=== PATIENT | female | born 1970 | race Caucasian/White ===

== ENCOUNTER 2022-08-20 14:36 | Inpatient (IN) | payer MEDICARE, MEDICAID ==
[~2022-08-20] VITALS: Ht 160 cm; Wt 73.2 kg
[2022-08-20] MEDS ORDERED: OLAN5TAB52 PO (15:12)
[2022-08-20] MEDS ORDERED: MIRT-89 PO (15:12)
[2022-08-20] MEDS ORDERED: HYDR-4723 PO (15:14)
[2022-08-20] MEDS ORDERED: INSNOV SQ (15:14)
[2022-08-20 17:01] LABS: COVID AG,FIA SOURCE NASOPHARYNGEAL
[2022-08-20] MEDS ORDERED: LORazepam 2 MG/ML VIAL IM ONE (18:30)
[2022-08-20] MEDS ORDERED: HALOPERIDOL LACTATE 5 MG/ML VIAL IM ONE (18:30)
[2022-08-20] MEDS ORDERED: DiphenhydrAMINE HCL 50 MG/ML VIAL IM ONE (18:30)
[2022-08-20 20:23] LABS: BASOPHILS % (AUTO) 0.4 % (0.0-2.0); EOSINOPHILS % (AUTO) 0 % (1.0-6.0); LYMPHOCYTES # (AUTO) 2.6 K/uL (1.0-4.8); LYMPHOCYTES % (AUTO) 33.7 % (22.0-44.0); MEAN CORPUSCULAR HEMOGLOBIN 29.6 pg (26.0-34.0); MEAN CORPUSCULAR HGB CONC 32.6 G/dL (31.0-37.0); MEAN CORPUSCULAR VOLUME 91 fL (80-100); MONOCYTES # (AUTO) 0.6 K/uL (0.1-1.0); MONOCYTES % (AUTO) 8.2 % (2.0-9.0); NEUTROPHILS # (AUTO) 4.5 K/uL (1.8-7.7); NEUTROPHILS % (AUTO) 57.7 % (40.0-70.0); PLATELET COUNT (AUTO) 326 K/uL (150-450); RED CELL DISTRIBUTION WIDTH 12.9 % (11.5-14.5)
[2022-08-20 20:48] LABS: ANION GAP 8 mmol/L (8-16); CALCIUM, TOTAL 8.9 mg/dL (8.8-10.5); CARBON DIOXIDE 28 mmol/L (22-29); CHLORIDE 101 mmol/L (98-107); CREATININE 0.52 mg/dL (0.60-1.30); GLOMERULAR FILTR. RATE CALC > 60 mL/min (>60); GLUCOSE,RANDOM 296 mg/dL (70-110); POTASSIUM 3.6 mmol/L (3.5-5.1); SODIUM SERUM 137 mmol/L (136-145)
[2022-08-20 20:53] LABS: ALANINE AMINOTRANSFERASE 27 U/L (12-78); ALBUMIN 3.3 g/dL (3.4-5.0); ALKALINE PHOSPHATASE 109 U/L (46-116); ASPARTATE AMINOTRANSFERASE 18 U/L (15-37); BILIRUBIN,TOTAL 0.3 mg/dL (0.1-1.0); TOTAL PROTEIN, SERUM 6.6 g/dL (6.4-8.2)
[2022-08-20] MEDS ORDERED: INSULIN REGULAR, HUMAN 100 UNITS/ML SQ ONE (21:00)
[2022-08-20 21:26] LABS: GLUCOMETER DEV NAME(LOC) ERT.5; GLUCOSE,POINT OF CARE 313 MG/DL (70-110)
[2022-08-21 04:11] LABS: GLUCOMETER DEV NAME(LOC) BV3S.; GLUCOSE,POINT OF CARE 328 MG/DL (70-110)
[2022-08-21 04:41] VITALS: BP 115/69
[2022-08-21] MEDS ORDERED: PNEUMOCOCCAL VACCINE POLYVALENT 0.5 ML VIAL [PPSV23] IM. ONE (05:00)
[2022-08-21 08:23] VITALS: BP 125/83
[2022-08-21] MEDS: OLANZapine 5 MG TABLET PO SCH (11:06)
[2022-08-21] MEDS ORDERED: GLUCAGON,HUMAN RECOMBINANT 1 MG VIAL IM PRN (15:15)
[2022-08-21] MEDS ORDERED: INSULIN LISPRO 100 UNITS/ML SQ ONE (16:30)
[2022-08-21 16:35] LABS: GLUCOMETER DEV NAME(LOC) BV2X.2; GLUCOSE,POINT OF CARE 410 MG/DL (70-110)
[2022-08-21 20:11] VITALS: BP 128/72
[2022-08-21] MEDS: MIRTAZAPINE 15 MG TABLET PO SCH (20:34)
[2022-08-21 20:46] LABS: GLUCOMETER DEV NAME(LOC) BV2X.2; GLUCOSE,POINT OF CARE 261 MG/DL (70-110)
[2022-08-21] MEDS: INSULIN LISPRO 100 UNITS/ML SQ PRN (20:49)
[2022-08-22 04:30] VITALS: BP 144/80
[2022-08-22] MEDS: LORazepam 2 MG TABLET PO PRN (04:43)
[2022-08-22 06:16] LABS: GLUCOMETER DEV NAME(LOC) BV2X.2; GLUCOSE,POINT OF CARE 261 MG/DL (70-110)
[2022-08-22] MEDS: INSULIN LISPRO 100 UNITS/ML SQ PRN ×4 (06:26→20:09)
[2022-08-22 08:11] VITALS: BP 110/70
[2022-08-22] MEDS: OLANZapine 5 MG TABLET PO SCH (08:35)
[2022-08-22 11:20] LABS: GLUCOMETER DEV NAME(LOC) BV2X.2; GLUCOSE,POINT OF CARE 364 MG/DL (70-110)
[2022-08-22 16:56] LABS: GLUCOMETER DEV NAME(LOC) BV2X.2; GLUCOSE,POINT OF CARE 306 MG/DL (70-110)
[2022-08-22] MEDS: MIRTAZAPINE 15 MG TABLET PO SCH (20:11)
[2022-08-22 20:21] LABS: GLUCOMETER DEV NAME(LOC) BV2X.2; GLUCOSE,POINT OF CARE 382 MG/DL (70-110)
[2022-08-22] MEDS: ZOLPIDEM TARTRATE 10 MG TABLET PO PRN (21:24)
[2022-08-23 03:52] VITALS: BP 142/85
[2022-08-23 06:26] LABS: GLUCOMETER DEV NAME(LOC) BV2X.2; GLUCOSE,POINT OF CARE 254 MG/DL (70-110)
[2022-08-23] MEDS: INSULIN LISPRO 100 UNITS/ML SQ PRN ×2 (06:43→12:15)
[2022-08-23 07:30] LABS: APPEARANCE,URINE CLEAR (CLEAR); BILIRUBIN,URINE NEGATIVE (NEGATIVE); GLUCOSE, URINE (UA) >=1000 mg/dL (NEGATIVE); KETONES,URINE NEGATIVE (NEGATIVE); LEUKOCYTE ESTERASE ,URINE NEGATIVE (NEGATIVE); NITRATE,URINE POSITIVE (NEGATIVE); OCCULT BLOOD,URINE NEGATIVE (NEGATIVE); PH,URINE 5.5 (5.0-8.0); PROTEIN,URINE NEGATIVE (NEGATIVE); SPECIFIC GRAVITIY, URINE 1.032 (1.003-1.030); UROBILINOGEN,URINE <=1.0 mg/dL (<=1.0)
[2022-08-23 07:39] LABS: AMPHET/METH SCREEN,URINE NEGATIVE (NEGATIVE); BARBITURATE SCREEN, URINE NEGATIVE (NEGATIVE); BENZODIAZEPINES SCREEN,URINE NEGATIVE (NEGATIVE); CANNABINOID SCREEN,URINE NEGATIVE (NEGATIVE); COCAINE SCREEN,URINE NEGATIVE (NEGATIVE); METHADONE SCREEN, URINE NEGATIVE (NEGATIVE); OPIATE SCREEN,URINE NEGATIVE (NEGATIVE); PHENCYCLIDINE SCREEN,URINE NEGATIVE (NEGATIVE)
[2022-08-23 07:40] LABS: BACTERIA,URINE Many /HPF (None Seen); RBC,URINE 0-2 /HPF (0-2); WBC,URINE None Seen /HPF (0-5); YEAST,URINE Few /HPF (None Seen)
[2022-08-23 07:41] LABS: SQUAMOUS EPITHELIAL CELL,UR Few /LPF (None Seen)
[2022-08-23 09:30] VITALS: BP 138/82
[2022-08-23 12:21] LABS: GLUCOMETER DEV NAME(LOC) BV2X.2; GLUCOSE,POINT OF CARE 290 MG/DL (70-110)
[2022-08-23 20:21] VITALS: BP 137/86
[2022-08-23 20:36] LABS: GLUCOMETER DEV NAME(LOC) BV2X.2; GLUCOSE,POINT OF CARE 449 MG/DL (70-110)
[2022-08-23] MEDS: MIRTAZAPINE 15 MG TABLET PO SCH (20:39)
[2022-08-23] MEDS: OLANZapine 5 MG TABLET PO SCH (20:39)
[2022-08-23] MEDS ORDERED: INSULIN LISPRO 100 UNITS/ML SQ ONE (20:45)
[2022-08-23] MEDS: INSULIN GLARGINE,HUM.REC.ANLOG 100 UNITS/ML SQ SCH (20:52)
[2022-08-24 06:16] LABS: GLUCOMETER DEV NAME(LOC) BV2X.2; GLUCOSE,POINT OF CARE 265 MG/DL (70-110)
[2022-08-24] MEDS: INSULIN LISPRO 100 UNITS/ML SQ PRN ×5 (06:42→20:42)
[2022-08-24] MEDS: INSULIN GLARGINE,HUM.REC.ANLOG 100 UNITS/ML SQ SCH ×2 (08:33→17:02)
[2022-08-24 08:50] VITALS: BP 136/83
[2022-08-24 11:31] LABS: GLUCOMETER DEV NAME(LOC) BV2X.2; GLUCOSE,POINT OF CARE 241 MG/DL (70-110)
[2022-08-24 16:51] LABS: GLUCOMETER DEV NAME(LOC) BV2X.2; GLUCOSE,POINT OF CARE 368 MG/DL (70-110)
[2022-08-24] MEDS: MIRTAZAPINE 15 MG TABLET PO SCH (20:36)
[2022-08-24] MEDS: OLANZapine 5 MG TABLET PO SCH (20:36)
[2022-08-24 20:46] LABS: GLUCOMETER DEV NAME(LOC) BV2X.2; GLUCOSE,POINT OF CARE 344 MG/DL (70-110)
[2022-08-24 21:10] VITALS: BP 112/62
[2022-08-25 06:25] LABS: GLUCOMETER DEV NAME(LOC) BV2X.2; GLUCOSE,POINT OF CARE 245 MG/DL (70-110)
[2022-08-25] MEDS: INSULIN LISPRO 100 UNITS/ML SQ PRN ×4 (06:52→21:06)
[2022-08-25 08:24] VITALS: BP 119/72
[2022-08-25] MEDS: LEVOFLOXACIN 500 MG TABLET PO SCH (08:40)
[2022-08-25] MEDS: INSULIN GLARGINE,HUM.REC.ANLOG 100 UNITS/ML SQ SCH ×2 (08:49→17:37)
[2022-08-25 11:26] LABS: GLUCOMETER DEV NAME(LOC) BV2X.2; GLUCOSE,POINT OF CARE 192 MG/DL (70-110)
[2022-08-25] MEDS ORDERED: LORazepam 2 MG/ML VIAL ONE (15:17)
[2022-08-25] MEDS ORDERED: HALOPERIDOL LACTATE 5 MG/ML VIAL ONE (15:17)
[2022-08-25] MEDS ORDERED: DiphenhydrAMINE HCL 50 MG/ML VIAL ONE (15:17)
[2022-08-25] MEDS ORDERED: LORazepam 2 MG/ML VIAL IM ONE (15:30)
[2022-08-25] MEDS ORDERED: DiphenhydrAMINE HCL 50 MG/ML VIAL IM ONE (15:30)
[2022-08-25] MEDS ORDERED: HALOPERIDOL LACTATE 5 MG/ML VIAL IM ONE (15:30)
[2022-08-25 17:21] LABS: GLUCOMETER DEV NAME(LOC) BV2X.2; GLUCOSE,POINT OF CARE 313 MG/DL (70-110)
[2022-08-25] MEDS: MIRTAZAPINE 15 MG TABLET PO SCH (20:22)
[2022-08-25] MEDS: OLANZapine 5 MG TABLET PO SCH (20:27)
[2022-08-25 21:47] VITALS: BP 120/60
[2022-08-25 23:21] LABS: GLUCOMETER DEV NAME(LOC) POC.BV
[2022-08-26] MEDS: LORazepam 2 MG TABLET PO PRN ×2 (04:18→08:46)
[2022-08-26] MEDS: HALOPERIDOL 5 MG TABLET PO PRN ×2 (04:19→08:45)
[2022-08-26 04:23] VITALS: BP 140/82
[2022-08-26 06:36] LABS: GLUCOMETER DEV NAME(LOC) BV2X.2; GLUCOSE,POINT OF CARE 314 MG/DL (70-110)
[2022-08-26] MEDS: INSULIN LISPRO 100 UNITS/ML SQ PRN ×4 (06:50→20:43)
[2022-08-26 08:16] VITALS: BP 134/81
[2022-08-26] MEDS: LEVOFLOXACIN 500 MG TABLET PO SCH (08:45)
[2022-08-26] MEDS: OLANZapine 5 MG TABLET PO SCH ×2 (08:46→20:35)
[2022-08-26] MEDS: INSULIN GLARGINE,HUM.REC.ANLOG 100 UNITS/ML SQ SCH ×2 (08:55→16:53)
[2022-08-26 11:41] LABS: GLUCOMETER DEV NAME(LOC) BV2X.2; GLUCOSE,POINT OF CARE 329 MG/DL (70-110)
[2022-08-26 17:01] LABS: GLUCOMETER DEV NAME(LOC) BV2X.2; GLUCOSE,POINT OF CARE 202 MG/DL (70-110)
[2022-08-26 20:11] VITALS: BP 141/79
[2022-08-26] MEDS: MIRTAZAPINE 15 MG TABLET PO SCH (20:33)
[2022-08-26 20:56] LABS: GLUCOMETER DEV NAME(LOC) BV2X.2; GLUCOSE,POINT OF CARE 332 MG/DL (70-110)
[2022-08-27] MEDS: ZOLPIDEM TARTRATE 10 MG TABLET PO PRN (00:48)
[2022-08-27] MEDS: HALOPERIDOL 5 MG TABLET PO PRN (01:58)
[2022-08-27] MEDS: LORazepam 2 MG TABLET PO PRN (01:58)
[2022-08-27 06:06] LABS: GLUCOMETER DEV NAME(LOC) BV2X.2; GLUCOSE,POINT OF CARE 188 MG/DL (70-110)
[2022-08-27] MEDS: INSULIN LISPRO 100 UNITS/ML SQ PRN ×4 (06:20→20:25)
[2022-08-27] MEDS: OLANZapine 5 MG TABLET PO SCH ×2 (08:59→20:01)
[2022-08-27] MEDS: LEVOFLOXACIN 500 MG TABLET PO SCH (08:59)
[2022-08-27 09:04] VITALS: BP 149/82
[2022-08-27] MEDS: INSULIN GLARGINE,HUM.REC.ANLOG 100 UNITS/ML SQ SCH ×2 (09:13→16:25)
[2022-08-27] MEDS: DIVALPROEX SODIUM 500 MG DR TABLET PO SCH ×2 (11:15→20:01)
[2022-08-27 12:01] LABS: GLUCOMETER DEV NAME(LOC) BV2X.2; GLUCOSE,POINT OF CARE 239 MG/DL (70-110)
[2022-08-27 16:41] LABS: GLUCOMETER DEV NAME(LOC) BV2X.2; GLUCOSE,POINT OF CARE 294 MG/DL (70-110)
[2022-08-27] MEDS: MIRTAZAPINE 15 MG TABLET PO SCH (20:01)
[2022-08-27 20:03] VITALS: BP 144/75
[2022-08-27 21:26] LABS: GLUCOMETER DEV NAME(LOC) BV2X.2; GLUCOSE,POINT OF CARE 350 MG/DL (70-110)
[2022-08-28] MEDS: ZOLPIDEM TARTRATE 10 MG TABLET PO PRN (01:17)
[2022-08-28 05:30] LABS: GLUCOMETER DEV NAME(LOC) BV2X.2; GLUCOSE,POINT OF CARE 280 MG/DL (70-110)
[2022-08-28] MEDS: INSULIN LISPRO 100 UNITS/ML SQ PRN ×3 (06:37→21:48)
[2022-08-28 08:05] VITALS: BP 115/60
[2022-08-28] MEDS: LEVOFLOXACIN 500 MG TABLET PO SCH (08:25)
[2022-08-28] MEDS: OLANZapine 5 MG TABLET PO SCH ×2 (08:25→20:58)
[2022-08-28] MEDS: DIVALPROEX SODIUM 500 MG DR TABLET PO SCH ×2 (08:25→20:58)
[2022-08-28] MEDS: INSULIN GLARGINE,HUM.REC.ANLOG 100 UNITS/ML SQ SCH ×2 (09:02→18:12)
[2022-08-28 12:21] LABS: GLUCOMETER DEV NAME(LOC) BV2X.2; GLUCOSE,POINT OF CARE 278 MG/DL (70-110)
[2022-08-28] MEDS: HALOPERIDOL 5 MG TABLET PO PRN (16:07)
[2022-08-28] MEDS: LORazepam 2 MG TABLET PO PRN (16:07)
[2022-08-28 20:00] VITALS: BP 125/87
[2022-08-28] MEDS: MIRTAZAPINE 15 MG TABLET PO SCH (20:58)
[2022-08-28 22:16] LABS: GLUCOMETER DEV NAME(LOC) BV2S.; GLUCOSE,POINT OF CARE 344 MG/DL (70-110)
[2022-08-29 04:11] LABS: GLUCOMETER DEV NAME(LOC) BV2X.2; GLUCOSE,POINT OF CARE 290 MG/DL (70-110)
[2022-08-29 06:36] LABS: GLUCOMETER DEV NAME(LOC) BV2X.2; GLUCOSE,POINT OF CARE 234 MG/DL (70-110)
[2022-08-29] MEDS: INSULIN LISPRO 100 UNITS/ML SQ PRN ×2 (07:35→16:44)
[2022-08-29] MEDS: DIVALPROEX SODIUM 500 MG DR TABLET PO SCH ×2 (08:50→20:44)
[2022-08-29] MEDS: OLANZapine 5 MG TABLET PO SCH ×2 (08:51→20:44)
[2022-08-29] MEDS: LEVOFLOXACIN 500 MG TABLET PO SCH (08:51)
[2022-08-29] MEDS: INSULIN GLARGINE,HUM.REC.ANLOG 100 UNITS/ML SQ SCH ×2 (08:53→16:44)
[2022-08-29 09:02] VITALS: BP 116/70
[2022-08-29] MEDS ORDERED: INSULIN LISPRO 100 UNITS/ML SQ ONE (11:30)
[2022-08-29 11:36] LABS: GLUCOMETER DEV NAME(LOC) BV2X.2; GLUCOSE,POINT OF CARE 401 MG/DL (70-110)
[2022-08-29 16:32] LABS: GLUCOMETER DEV NAME(LOC) BV2X.2; GLUCOSE,POINT OF CARE 200 MG/DL (70-110)
[2022-08-29] MEDS: MIRTAZAPINE 15 MG TABLET PO SCH ×2 (20:44→23:16)
[2022-08-29 21:57] VITALS: BP 115/70
[2022-08-29] MEDS: ZOLPIDEM TARTRATE 10 MG TABLET PO PRN (23:16)
[2022-08-30 06:22] LABS: GLUCOMETER DEV NAME(LOC) BV2X.2; GLUCOSE,POINT OF CARE 251 MG/DL (70-110)
[2022-08-30] MEDS: INSULIN LISPRO 100 UNITS/ML SQ PRN ×4 (06:53→20:43)
[2022-08-30] MEDS: OLANZapine 5 MG TABLET PO SCH ×2 (09:04→20:24)
[2022-08-30] MEDS: DIVALPROEX SODIUM 500 MG DR TABLET PO SCH ×2 (09:04→20:24)
[2022-08-30] MEDS: INSULIN GLARGINE,HUM.REC.ANLOG 100 UNITS/ML SQ SCH ×2 (09:06→16:46)
[2022-08-30 11:47] LABS: GLUCOMETER DEV NAME(LOC) BV2X.2; GLUCOSE,POINT OF CARE 349 MG/DL (70-110)
[2022-08-30 16:31] LABS: GLUCOMETER DEV NAME(LOC) BV2X.2; GLUCOSE,POINT OF CARE 316 MG/DL (70-110)
[2022-08-30 20:01] VITALS: BP 149/74
[2022-08-30 20:36] LABS: GLUCOMETER DEV NAME(LOC) BV2X.2; GLUCOSE,POINT OF CARE 260 MG/DL (70-110)
[2022-08-31 06:16] LABS: GLUCOMETER DEV NAME(LOC) BV2X.2; GLUCOSE,POINT OF CARE 245 MG/DL (70-110)
[2022-08-31] MEDS: INSULIN LISPRO 100 UNITS/ML SQ PRN ×2 (06:33→11:17)
[2022-08-31 08:07] VITALS: BP 130/79
[2022-08-31] MEDS: OLANZapine 5 MG TABLET PO SCH ×2 (08:26→20:30)
[2022-08-31] MEDS: DIVALPROEX SODIUM 500 MG DR TABLET PO SCH ×2 (08:26→20:30)
[2022-08-31] MEDS: INSULIN GLARGINE,HUM.REC.ANLOG 100 UNITS/ML SQ SCH ×2 (08:28→17:00)
[2022-08-31 11:26] LABS: GLUCOMETER DEV NAME(LOC) BV2X.2; GLUCOSE,POINT OF CARE 265 MG/DL (70-110)
[2022-08-31] MEDS: LORazepam 2 MG TABLET PO PRN (16:59)
[2022-08-31] MEDS: HALOPERIDOL 5 MG TABLET PO PRN (17:00)
[2022-08-31] MEDS: MIRTAZAPINE 15 MG TABLET PO SCH (20:30)
[2022-09-01 06:26] LABS: GLUCOMETER DEV NAME(LOC) BV2X.2; GLUCOSE,POINT OF CARE 290 MG/DL (70-110)
[2022-09-01] MEDS: INSULIN LISPRO 100 UNITS/ML SQ PRN ×4 (06:34→20:43)
[2022-09-01] MEDS: OLANZapine 5 MG TABLET PO SCH ×2 (08:01→20:34)
[2022-09-01] MEDS: DIVALPROEX SODIUM 500 MG DR TABLET PO SCH ×2 (08:01→20:34)
[2022-09-01] MEDS: LORazepam 2 MG TABLET PO PRN (08:01)
[2022-09-01] MEDS: HALOPERIDOL 5 MG TABLET PO PRN (08:01)
[2022-09-01] MEDS: INSULIN GLARGINE,HUM.REC.ANLOG 100 UNITS/ML SQ SCH ×2 (08:02→16:50)
[2022-09-01 08:36] VITALS: BP 134/81
[2022-09-01 11:46] LABS: GLUCOMETER DEV NAME(LOC) BV2X.2; GLUCOSE,POINT OF CARE 378 MG/DL (70-110)
[2022-09-01 16:46] LABS: GLUCOMETER DEV NAME(LOC) BV2X.2; GLUCOSE,POINT OF CARE 366 MG/DL (70-110)
[2022-09-01 20:06] VITALS: BP 133/62
[2022-09-01] MEDS: MIRTAZAPINE 15 MG TABLET PO SCH (20:34)
[2022-09-01 20:56] LABS: GLUCOMETER DEV NAME(LOC) BV2X.2; GLUCOSE,POINT OF CARE 282 MG/DL (70-110)
[2022-09-02] MEDS: LORazepam 2 MG TABLET PO PRN (01:10)
[2022-09-02] MEDS: ZOLPIDEM TARTRATE 10 MG TABLET PO PRN (01:10)
[2022-09-02 05:51] LABS: GLUCOMETER DEV NAME(LOC) BV2X.2; GLUCOSE,POINT OF CARE 226 MG/DL (70-110)
[2022-09-02] MEDS: INSULIN LISPRO 100 UNITS/ML SQ PRN ×4 (06:18→20:38)
[2022-09-02 08:00] VITALS: BP 130/76
[2022-09-02] MEDS: DIVALPROEX SODIUM 500 MG DR TABLET PO SCH ×2 (08:12→20:29)
[2022-09-02] MEDS: OLANZapine 5 MG TABLET PO SCH ×2 (08:12→20:29)
[2022-09-02] MEDS: INSULIN GLARGINE,HUM.REC.ANLOG 100 UNITS/ML SQ SCH ×2 (08:20→16:47)
[2022-09-02 11:41] LABS: GLUCOMETER DEV NAME(LOC) BV2X.2; GLUCOSE,POINT OF CARE 239 MG/DL (70-110)
[2022-09-02 19:06] LABS: GLUCOMETER DEV NAME(LOC) BV2X.2; GLUCOSE,POINT OF CARE 299 MG/DL (70-110)
[2022-09-02] MEDS: MIRTAZAPINE 15 MG TABLET PO SCH (20:29)
[2022-09-02 20:31] LABS: GLUCOMETER DEV NAME(LOC) BV2X.2; GLUCOSE,POINT OF CARE 353 MG/DL (70-110)
[2022-09-02 20:35] VITALS: BP 150/84
[2022-09-03 06:26] LABS: GLUCOMETER DEV NAME(LOC) BV2X.2; GLUCOSE,POINT OF CARE 214 MG/DL (70-110)
[2022-09-03] MEDS: INSULIN LISPRO 100 UNITS/ML SQ PRN ×4 (06:37→20:27)
[2022-09-03 08:06] VITALS: BP 126/78
[2022-09-03] MEDS: OLANZapine 5 MG TABLET PO SCH ×2 (08:12→20:23)
[2022-09-03] MEDS: DIVALPROEX SODIUM 500 MG DR TABLET PO SCH ×2 (08:12→20:23)
[2022-09-03] MEDS: INSULIN GLARGINE,HUM.REC.ANLOG 100 UNITS/ML SQ SCH ×2 (08:17→16:35)
[2022-09-03] MEDS: LORazepam 2 MG TABLET PO PRN (09:48)
[2022-09-03 11:36] LABS: GLUCOMETER DEV NAME(LOC) BV2X.2; GLUCOSE,POINT OF CARE 285 MG/DL (70-110)
[2022-09-03 16:37] LABS: GLUCOMETER DEV NAME(LOC) BV2X.2; GLUCOSE,POINT OF CARE 317 MG/DL (70-110)
[2022-09-03 20:00] VITALS: BP 135/68
[2022-09-03] MEDS: MIRTAZAPINE 15 MG TABLET PO SCH (20:23)
[2022-09-03 20:55] LABS: GLUCOMETER DEV NAME(LOC) BV2X.2; GLUCOSE,POINT OF CARE 230 MG/DL (70-110)
[2022-09-04] MEDS: ZOLPIDEM TARTRATE 10 MG TABLET PO PRN ×2 (01:04→21:01)
[2022-09-04] MEDS: INSULIN LISPRO 100 UNITS/ML SQ PRN ×4 (06:15→20:36)
[2022-09-04 06:16] LABS: GLUCOMETER DEV NAME(LOC) BV2X.2; GLUCOSE,POINT OF CARE 217 MG/DL (70-110)
[2022-09-04 08:00] VITALS: BP_SYST 122; BP_SYST 136; BP_DIAS 60; BP_DIAS 79
[2022-09-04] MEDS: DIVALPROEX SODIUM 500 MG DR TABLET PO SCH ×2 (08:02→20:17)
[2022-09-04] MEDS: OLANZapine 5 MG TABLET PO SCH ×2 (08:02→20:17)
[2022-09-04] MEDS: INSULIN GLARGINE,HUM.REC.ANLOG 100 UNITS/ML SQ SCH ×2 (08:11→16:30)
[2022-09-04] MEDS: LORazepam 2 MG TABLET PO PRN (09:27)
[2022-09-04 11:26] LABS: GLUCOMETER DEV NAME(LOC) BV2X.2; GLUCOSE,POINT OF CARE 359 MG/DL (70-110)
[2022-09-04 16:31] LABS: GLUCOMETER DEV NAME(LOC) BV2X.2; GLUCOSE,POINT OF CARE 300 MG/DL (70-110)
[2022-09-04 16:47] LABS: GLUCOMETER DEV NAME(LOC) POC.BV
[2022-09-04 20:00] VITALS: BP 122/60
[2022-09-04] MEDS: MIRTAZAPINE 15 MG TABLET PO SCH (20:17)
[2022-09-04 22:11] LABS: GLUCOMETER DEV NAME(LOC) BV2X.2; GLUCOSE,POINT OF CARE 359 MG/DL (70-110)
[2022-09-05] MEDS: LORazepam 2 MG TABLET PO PRN (02:52)
[2022-09-05] MEDS: INSULIN LISPRO 100 UNITS/ML SQ PRN ×4 (06:20→20:37)
[2022-09-05 06:26] LABS: GLUCOMETER DEV NAME(LOC) BV2X.2; GLUCOSE,POINT OF CARE 199 MG/DL (70-110)
[2022-09-05 08:00] VITALS: BP 122/66
[2022-09-05] MEDS: DIVALPROEX SODIUM 500 MG DR TABLET PO SCH ×2 (08:33→20:27)
[2022-09-05] MEDS: OLANZapine 5 MG TABLET PO SCH ×2 (08:33→20:27)
[2022-09-05] MEDS: INSULIN GLARGINE,HUM.REC.ANLOG 100 UNITS/ML SQ SCH ×2 (08:49→16:34)
[2022-09-05 11:55] LABS: GLUCOMETER DEV NAME(LOC) BV2X.2; GLUCOSE,POINT OF CARE 294 MG/DL (70-110)
[2022-09-05 16:36] LABS: GLUCOMETER DEV NAME(LOC) BV2X.2; GLUCOSE,POINT OF CARE 255 MG/DL (70-110)
[2022-09-05] MEDS: ACETAMINOPHEN 325 MG TABLET PO PRN (16:38)
[2022-09-05 20:01] VITALS: BP 140/86
[2022-09-05] MEDS: MIRTAZAPINE 15 MG TABLET PO SCH (20:27)
[2022-09-05 20:46] LABS: GLUCOMETER DEV NAME(LOC) BV2X.2; GLUCOSE,POINT OF CARE 312 MG/DL (70-110)
[2022-09-05] MEDS: ZOLPIDEM TARTRATE 10 MG TABLET PO PRN (22:40)
[2022-09-06] MEDS: LORazepam 2 MG TABLET PO PRN (02:53)
[2022-09-06] MEDS: INSULIN LISPRO 100 UNITS/ML SQ PRN ×4 (06:07→21:05)
[2022-09-06 06:21] LABS: GLUCOMETER DEV NAME(LOC) BV2X.2; GLUCOSE,POINT OF CARE 204 MG/DL (70-110)
[2022-09-06] MEDS: OLANZapine 5 MG TABLET PO SCH ×2 (09:12→20:20)
[2022-09-06] MEDS: DIVALPROEX SODIUM 500 MG DR TABLET PO SCH ×2 (09:12→20:20)
[2022-09-06] MEDS: INSULIN GLARGINE,HUM.REC.ANLOG 100 UNITS/ML SQ SCH ×2 (09:16→16:45)
[2022-09-06 11:36] LABS: GLUCOMETER DEV NAME(LOC) BV2X.2; GLUCOSE,POINT OF CARE 178 MG/DL (70-110)
[2022-09-06 16:56] LABS: GLUCOMETER DEV NAME(LOC) BV2X.2; GLUCOSE,POINT OF CARE 198 MG/DL (70-110)
[2022-09-06] MEDS: MIRTAZAPINE 15 MG TABLET PO SCH (20:20)
[2022-09-06 20:36] LABS: GLUCOMETER DEV NAME(LOC) BV2X.2; GLUCOSE,POINT OF CARE 175 MG/DL (70-110)
[2022-09-06 21:12] VITALS: BP 136/81
[2022-09-06] MEDS: ACETAMINOPHEN 325 MG TABLET PO PRN (23:45)
[2022-09-07] MEDS: ZOLPIDEM TARTRATE 10 MG TABLET PO PRN ×2 (01:11→20:46)
[2022-09-07 06:12] LABS: GLUCOMETER DEV NAME(LOC) BV2X.2; GLUCOSE,POINT OF CARE 261 MG/DL (70-110)
[2022-09-07] MEDS: INSULIN LISPRO 100 UNITS/ML SQ PRN ×4 (06:27→20:49)
[2022-09-07] MEDS: DIVALPROEX SODIUM 500 MG DR TABLET PO SCH ×2 (08:01→20:46)
[2022-09-07] MEDS: OLANZapine 5 MG TABLET PO SCH ×2 (08:01→20:46)
[2022-09-07] MEDS: INSULIN GLARGINE,HUM.REC.ANLOG 100 UNITS/ML SQ SCH ×2 (08:02→17:12)
[2022-09-07 08:30] VITALS: BP 140/88
[2022-09-07 11:26] LABS: GLUCOMETER DEV NAME(LOC) BV2X.2; GLUCOSE,POINT OF CARE 190 MG/DL (70-110)
[2022-09-07 18:01] LABS: GLUCOMETER DEV NAME(LOC) BV2X.2; GLUCOSE,POINT OF CARE 263 MG/DL (70-110)
[2022-09-07 20:16] VITALS: BP 133/77
[2022-09-07] MEDS: MIRTAZAPINE 15 MG TABLET PO SCH (20:46)
[2022-09-07 20:56] LABS: GLUCOMETER DEV NAME(LOC) BV2X.2; GLUCOSE,POINT OF CARE 327 MG/DL (70-110)
[2022-09-07] MEDS: ACETAMINOPHEN 325 MG TABLET PO PRN (21:14)
[2022-09-08 06:16] LABS: GLUCOMETER DEV NAME(LOC) BV2X.2; GLUCOSE,POINT OF CARE 207 MG/DL (70-110)
[2022-09-08] MEDS: INSULIN LISPRO 100 UNITS/ML SQ PRN (06:30)
[2022-09-08 08:03] VITALS: BP 108/61
[2022-09-08] MEDS: OLANZapine 5 MG TABLET PO SCH (08:15)
[2022-09-08] MEDS: DIVALPROEX SODIUM 500 MG DR TABLET PO SCH (08:15)
[2022-09-08] MEDS: INSULIN GLARGINE,HUM.REC.ANLOG 100 UNITS/ML SQ SCH (09:10)
[2022-09-08] MEDS ORDERED: OLAN5TAB52 PO (10:57)
[2022-09-08] MEDS ORDERED: DIVA-112 PO (10:57)
[2022-09-08] MEDS ORDERED: MIRT-89 PO (10:57)
[2022-09-08] MEDS ORDERED: INSLAN SQ (11:00)
== END 2022-09-08 13:00 | disposition home or self-care (01) | DRG 885 ==
LOC: EMS 14:36 → B3A 23:52 → UNDOADMIN 23:52 → B3A 08-21 → B2X 08-21 10:16
PROVIDERS: ADMIT Psychiatry & Neurology Child & Adolescent Psychiatry; ATTEND Psychiatry & Neurology Psychiatry
DX: F25.0 Schizoaffective disorder, bipolar type (principal); E11.9 Type 2 diabetes mellitus without complications; J44.9 Chronic obstructive pulmonary disease, unspecified; G47.00 Insomnia, unspecified; K21.9 Gastro-esophageal reflux disease without esophagitis; F32.A Depression, unspecified; Z20.822 Contact with and (suspected) exposure to COVID-19; Z79.899 Other long term (current) drug therapy
CPT/HCPCS: 80053; 80164; 80307; 81001; 82962; 85025; 87081; 87086; 87186; 90732; 99285; G0480; J1200; J1630; J1815; J2060